=== PATIENT | female | born 1960 | race Caucasian/White ===

== ENCOUNTER → 2016-12-29 | Day surgery (SDC) | payer OTHER ==
[~2016-12-29] VITALS: Ht 162.5 cm; Wt 127.0 kg
[~2016-12-29] MED LIST: BREO ELLIPTA 21 EACH IH; ESCITALOPRAM OX10 MG PO; ESOMEPRAZOLE MA40 M1 PO; FLEXERIL10 MG PO; MIRALAX POWDER255 G1 PO; MOTRIN600 MG PO; PROAIR HFA8.5 GM INH; PROPRANOLOL ER80 MG PO
--- NOTE | ~2016-12-29 | O ---
[place], [place] OPERATIVE NOTE NAME: CARLOTTA CAMP UNIT #: [id number] ROOM: DOCTOR: YULISSA LUEVANO MD BIRTHDATE: [birth year] DOS: GASTROENDOSCOPIC REPORT INDICATION: The patient is a 56-year-old who has presented for colonic screening and investigation of anemia, on iron supplementation on Nexium and Aleve. ALLERGIES: KIWI. FAMILY HISTORY: Noncontributory. PAST SURGICAL HISTORY: Bilateral knee. PAST MEDICAL HISTORY: Migraines, asthma, depression. SOCIAL HISTORY: Nonsmoker, social alcohol consumer. PROCEDURE: Today's procedure part of investigation is panendoscopy and colonoscopy. PREMEDICATION: Versed and Diprivan. SCOPE: Olympus forward-viewing gastroscope Q10 video. REPORT: After putting the patient in the left lateral position and after application of lubricant to the scope, scope was introduced; thereafter, under direct visualization, advanced through the length of the esophagus without difficulty. Very mild gastritis was noticed. Duodenal bulb, second and third part within normal limit. Antral biopsy was obtained, ruling out H. pylori. The patient had multiple hyperplastic polyps in the gastric pouch. These are all secondary to PPI management. There is mild gastritis. PLAN AND DISCUSSION: I did not see any evidence of GI bleed contribution in upper GI tract. We are going to proceed with colonoscopy. [place], [place] OPERATIVE NOTE NAME: CARLOTTA CAMP UNIT #: [id number] ROOM: DOCTOR: YULISSA LUEVANO MD BIRTHDATE: [birth year] YULISSA LUEVANO MD CM:OPRECORD:OPERATIVE NOTE [id number] YULISSA LUEVANO MD 12/29/16 1025 interface
--- NOTE | ~2016-12-29 | O ---
[place], [place] OPERATIVE NOTE NAME: CARLOTTA CAMP [facility] #: [id number] UNIT #: [id number] ROOM: DOCTOR: CHLOÉ KRISHNAMURTHY,YULISSA BIRTHDATE: [birth year] DOS: GASTROENDOSCOPIC REPORT INDICATIONS: The patient has presented with anemia, undergoing investigation. PROCEDURE: Today's procedure part of investigation is colonoscopy plus photographic series. PREMEDICATION: Versed and Diprivan. SCOPE: Olympus forward-viewing colonoscope 10L video. REPORT: After putting the patient in the left lateral position and after application of lubricant to the scope, the scope was introduced; thereafter, under direct visualization, advanced through the length of colon without difficulty. Evidence of diverticulosis of moderate degree in sigmoid colon particularly was noticed. Base of the cecum explored, appendiceal orifice identified and ileocecal valve was defined. There is a stool tingeing the cecum. The patient extubated, tolerated procedure well. IMPRESSION: Diverticulosis of sigmoid colon, otherwise moderate angulation of sigmoid colon. PLAN AND DISCUSSION: We are going to proceed with high-fiber fruit diet. ACTIVITY: Ad genny. FOLLOWUP: As outpatient routinely with you in office, p.r.n. visit with us in GI Clinic. Thank you very much indeed for your kind referral. YULISSA LUEVANO MD CM:OPRECORD:OPERATIVE NOTE [phone] YULISSA LUEVANO MD 12/29/16 1027 interface
[2016-12-29 08:40] VITALS: BP 114/67
[2016-12-29 09:48] VITALS: BP 119/64
[2016-12-29 10:03] VITALS: BP 109/51
[2016-12-29 10:18] VITALS: BP 115/62
== END | disposition home or self-care (01) ==
LOC: SDC 12-24 11:00
DX: K29.50 Unspecified chronic gastritis without bleeding (principal); K57.30 Diverticulosis of large intestine without perforation or abscess without bleeding; D64.9 Anemia, unspecified; G43.909 Migraine, unspecified, not intractable, without status migrainosus; J45.909 Unspecified asthma, uncomplicated; F32.9 Major depressive disorder, single episode, unspecified; G47.30 Sleep apnea, unspecified; K21.9 Gastro-esophageal reflux disease without esophagitis; Z98.890 Other specified postprocedural states

== ENCOUNTER → 2017-01-07 | Outpatient (CLI) | payer OTHER | END | disposition home or self-care (01) | LOC: US 09:30 | DX: K80.20 Calculus of gallbladder without cholecystitis without obstruction (principal); D21.9 Benign neoplasm of connective and other soft tissue, unspecified; K21.9 Gastro-esophageal reflux disease without esophagitis ==

== ENCOUNTER → 2018-08-29 | Outpatient (CLI) | payer OTHER ==
[~2018-08-29] MED LIST changes: -ESCITALOPRAM OX10 MG PO; +LEXAPRO20 MG PO; +WELLBUTRIN SR150 MG PO
[2018-08-29 14:42] LABS: BASO # 0.1 10*3/uL (0.0-0.1); BASO % 1.4 % (0.0-1.0); EOS # 0.1 10*3/uL (0.0-0.4); EOS % 2.2 % (1.0-4.0); HEMATOCRIT 40.8 % (37.0-47.0); HEMOGLOBIN 12.3 g/dl (12.0-16.0); LYMPH # 1.3 10*3/uL (1.3-4.4); LYMPH % 25.2 % (27.0-41.0); MEAN CELL VOLUME 88.1 fl (81.0-99.0); MEAN CORPUSCULAR HGB 26.6 pg (27.0-31.0); MEAN CORPUSCULAR HGB CONC 30.1 g/dl (33.0-37.0); MEAN PLATELET VOLUME 9.7 fl (9.6-12.3); MONO # 0.5 10*3/uL (0.1-1.0); MONO % 9.8 % (3.0-9.0); NEUT # 3.1 10*3/uL (2.3-7.9); NEUT % 61.2 % (47.0-73.0); PLATELET COUNT AUTOMATED 241 10*3/uL (130-400); RED BLOOD COUNT 4.63 10*6/uL (4.10-5.10); RED CELL DISTRI WIDTH 13.6 % (0-14.5); WHITE BLOOD COUNT 5.1 10*3/uL (4.8-10.8)
[2018-08-29 15:13] LABS: ALBUMIN 3.3 gm/dl (3.1-4.5); ALKALINE PHOSPHATASE 87 U/L (45-117); BUN 15 mg/dl (7-24); CHLORIDE 111 mmol/L (98-107); CHOLESTEROL 204 mg/dL (<200); CREATININE 0.84 mg/dL (0.55-1.02); FREE T4 0.97 ng/dl (0.76-1.46); HDL CHOLESTEROL 66 mg/dl (40-60); LDL CHOLESTEROL 107 mg/dL (9-159); POTASSIUM 4.6 mmol/L (3.5-5.1); SGOT/AST 11 IU/L (3-35); SGPT/ALT 16 U/L (12-78); SODIUM 143 mmol/L (136-145); TOTAL PROTEIN 6.9 gm/dL (6.4-8.2); TRIGLYCERIDES 153 mg/dl (<150); VLDL CHOLESTEROL 31 mg/dL (6-40)
[2018-08-29 15:20] LABS: VITAMIN D, 25-HYDROXY 31.9 ng/mL (30-100)
== END | disposition home or self-care (01) ==
LOC: LAB 13:52
PROVIDERS: Internal Medicine
DX: Z13.1 Encounter for screening for diabetes mellitus (principal); Z13.21 Encounter for screening for nutritional disorder; Z13.220 Encounter for screening for lipoid disorders; K21.0 Gastro-esophageal reflux disease with esophagitis; D50.8 Other iron deficiency anemias; K12.0 Recurrent oral aphthae; K21.9 Gastro-esophageal reflux disease without esophagitis

== ENCOUNTER 2019-02-08 05:28 | Emergency (ER) | payer OTHER ==
[~2019-02-08] VITALS: Ht 165.1 cm; Wt 1501.4 kg
== END 2019-02-08 06:48 | disposition home or self-care (01) ==
LOC: ED 05:28
DX: S16.1XXA Strain of muscle, fascia and tendon at neck level, initial encounter (principal); S09.90XA Unspecified injury of head, initial encounter; M54.6 Pain in thoracic spine; I10 Essential (primary) hypertension; K21.9 Gastro-esophageal reflux disease without esophagitis; G43.909 Migraine, unspecified, not intractable, without status migrainosus; Z91.040 Latex allergy status; Z79.899 Other long term (current) drug therapy; W18.2XXA Fall in (into) shower or empty bathtub, initial encounter; Y93.89 Activity, other specified; Y92.091 Bathroom in other non-institutional residence as the place of occurrence of the external cause; Y99.8 Other external cause status

== ENCOUNTER → 2019-10-19 | Outpatient (CLI) | payer OTHER ==
[2019-10-19 14:56] LABS: BASO # 0.1 10*3/uL (0.0-0.1); BASO % 0.7 % (0.0-1.0); EOS # 0.2 10*3/uL (0.0-0.4); EOS % 2.4 % (1.0-4.0); HEMATOCRIT 40.1 % (37.0-47.0); LYMPH # 1.4 10*3/uL (1.3-4.4); LYMPH % 20.2 % (27.0-41.0); MEAN CORPUSCULAR HGB 24.2 pg (27.0-31.0); MEAN CORPUSCULAR HGB CONC 29.2 g/dl (33.0-37.0); MEAN PLATELET VOLUME 9.3 fl (9.6-12.3); MONO # 0.7 10*3/uL (0.1-1.0); MONO % 9.7 % (3.0-9.0); NEUT # 4.8 10*3/uL (2.3-7.9); NEUT % 66.9 % (47.0-73.0); PLATELET COUNT AUTOMATED 287 10*3/uL (130-400); RED BLOOD COUNT 4.83 10*6/uL (4.10-5.10); RED CELL DISTRI WIDTH 14.4 % (0-14.5); WHITE BLOOD COUNT 7.1 10*3/uL (4.8-10.8)
[2019-10-19 15:25] LABS: ALBUMIN 3.3 gm/dl (3.1-4.5); ALKALINE PHOSPHATASE 93 U/L (45-117); BUN 17 mg/dl (7-24); CHLORIDE 106 mmol/L (98-107); CHOLESTEROL 193 mg/dL (<200); HDL CHOLESTEROL 64 mg/dl (40-60); LDL CHOLESTEROL 99 mg/dL (9-159); POTASSIUM 4.4 mmol/L (3.5-5.1); SGOT/AST 10 IU/L (3-35); SGPT/ALT 19 U/L (12-78); SODIUM 139 mmol/L (136-145); TOTAL PROTEIN 7.2 gm/dL (6.4-8.2); TRIGLYCERIDES 151 mg/dl (<150); VLDL CHOLESTEROL 30 mg/dL (6-40)
[2019-10-19 15:34] LABS: VITAMIN D, 25-HYDROXY 48.5 ng/mL (30-100)
== END | disposition home or self-care (01) ==
LOC: LAB 14:37
PROVIDERS: Internal Medicine
DX: Z00.00 Encounter for general adult medical examination without abnormal findings (principal); E78.2 Mixed hyperlipidemia; I10 Essential (primary) hypertension; E55.9 Vitamin D deficiency, unspecified

== ENCOUNTER → 2019-10-30 | Outpatient (CLI) | payer OTHER | END | disposition home or self-care (01) | LOC: CT 07:50 | PROVIDERS: ATTEND Internal Medicine | DX: R42 Dizziness and giddiness (principal) ==

== ENCOUNTER → 2019-11-01 | Outpatient (CLI) | payer OTHER | END | disposition home or self-care (01) | LOC: RAD 15:21 | PROVIDERS: ATTEND Nurse Practitioner Women's Health | DX: M79.89 Other specified soft tissue disorders (principal) ==

== ENCOUNTER → 2022-08-12 | Outpatient (CLI) | payer OTHER ==
[2022-08-12 12:20] LABS: BASO # 0.1 10*3/uL (0.0-0.1); EOS # 0.1 10*3/uL (0.0-0.4); HEMATOCRIT 45.1 % (37.0-47.0); LYMPH # 1.6 10*3/uL (1.3-4.4); MEAN CELL VOLUME 82.3 fl (81.0-99.0); MEAN CORPUSCULAR HGB 25.2 pg (27.0-31.0); MEAN CORPUSCULAR HGB CONC 30.6 g/dl (33.0-37.0); MONO # 0.4 10*3/uL (0.1-1.0); MONO % 6.3 % (3.0-9.0); NEUT # 3.9 10*3/uL (2.3-7.9); NEUT % 64.5 % (47.0-73.0); PLATELET COUNT AUTOMATED 315 10*3/uL (130-400); RED BLOOD COUNT 5.48 10*6/uL (4.10-5.10); RED CELL DISTRI WIDTH 13.8 % (0-14.5); WHITE BLOOD COUNT 6.1 10*3/uL (4.8-10.8)
[2022-08-12 13:22] LABS: ALKALINE PHOSPHATASE 90 U/L (46-116); BUN 10 mg/dl (9-23); CHLORIDE 103 mmol/L (98-107); CHOLESTEROL 182 mg/dL (<200); FREE T4 1.16 ng/dl (0.89-1.76); LDL CHOLESTEROL 103 mg/dL (9-159); POTASSIUM 4.3 mmol/L (3.4-5.1); SGPT/ALT 8 U/L (10-49); THYROID STIM HORMONE (HS) 3.057 uIU/ml (0.550-4.780); TOTAL PROTEIN 7.6 gm/dL (6.0-8.0); TRIGLYCERIDES 108 mg/dl (<150)
[2022-08-12 13:25] LABS: VITAMIN D, 25-HYDROXY 27.8 ng/mL (30-100)
== END | disposition home or self-care (01) ==
LOC: LAB 11:59
PROVIDERS: ATTEND Internal Medicine
DX: I10 Essential (primary) hypertension (principal); F41.1 Generalized anxiety disorder; F33.1 Major depressive disorder, recurrent, moderate; E55.9 Vitamin D deficiency, unspecified; D51.9 Vitamin B12 deficiency anemia, unspecified